=== PATIENT | female | born 1965 | race Caucasian/White ===

== ENCOUNTER 2016-08-28 14:51 | Emergency (ER) | payer MEDICAID ==
[~2016-08-28] VITALS: Ht 157.5 cm; Wt 76.4 kg
[~2016-08-28 14:51] MED LIST: NAPR-260 PO; TRAM50TA2 PO
[2016-08-28 14:53] VITALS: Ht 157.5 cm; Wt 76.4 kg
--- NOTE | 2016-08-28 17:15 | ERD ---
ER Documentation Chief Complaint Date/Time DATE: 08/28/16 TIME: 17:11 Chief Complaint RIGHT EYE REEDNESS HPI This a 51-year-old female who presents the emergency department today complaining of a red eye for the past 3 days. Patient states that she has been blowing her nose a lot recently as she has had allergies. States that she saw her eye doctor yesterday and he told her that she was fine and that she could follow-up in 2 weeks. States she is concerned because the redness has spread. Denies any trauma, loss of vision,, pain, blurred vision headache, nausea or vomiting. ROS All systems reviewed and are negative except as per history of present illness. Medications Home Meds Active Scripts Fluticasone Propionate (Flonase Allergy Relief) 9.9 Ml [place].susp, 2 SPRAY NASAL DAILY, #1 BOTTLE TO EACH NOSTRIL Prov:GUILLERMO NIETO PA-C 08/28/16 Cetirizine Hcl* (Zyrtec*) 10 Mg Capsule, 10 MG PO DAILY, #14 TAB.CHEW Prov:GUILLERMO NIETO PA-C 08/28/16 Tramadol HCl (Tramadol HCl) 50 Mg Tablet, 50 MG PO q8h, #10 TAB Prov:KERLINE VAUGHAN DO 04/02/15 Naproxen* (Naprosyn*) 500 Mg Tablet, 500 MG PO BID Y for PAIN AND/OR INFLAMMATION, #14 TAB Prov:KERLINE VAUGHAN DO 04/02/15 Allergies Allergies: Coded Allergies: No Known Allergy (Verified , 08/28/16) PMhx/Soc Medical and Surgical Hx: pt denies Medical Hx, pt denies Surgical Hx History of Surgery: No Anesthesia Reaction: No Hx Neurological Disorder: No Hx Respiratory Disorders: No Hx Cardiac Disorders: No Hx Psychiatric Problems: No Hx Miscellaneous Medical Probl: No Hx Alcohol Use: No Hx Substance Use: No Hx Tobacco Use: No Smoking Status: Never smoker Physical Exam Vitals Vital Signs Date Time Temp Pulse Resp B/P Pulse Ox O2 Delivery O2 Flow Rate FiO2 08/28/16 14:53 98.1 99 20 118/76 99 Physical Exam Const: No acute distress Head: Atraumatic Eyes: Right eye with conjunctival erythema and evidence of subconjunctival hemorrhage that does not cross into the iris. Left eye no erythema ENT: Ears TMs normal. Nose no drainage. Throat no erythema no exit Neck: Full range of motion..~ No meningismus. Resp: Clear to auscultation bilaterally Cardio: Regular rate and rhythm, no murmurs Skin: No petechiae or rashes Back: No midline or flank tenderness Psych: Normal Mood and Affect Procedures/MDM This 51-year-old female who presents the emergency department today concerned with right eye redness for the past 3 days. On physical exam patient has evidence of subconjunctival hemorrhage. Patient wears glasses and she did see her eye doctor yesterday but was told that everything was fine that she can return in 2 weeks. Patient was concerned because the redness is spreading. Redness does not cross into the colored portion of her iris and have low suspicion for, hyphema, globe rupture, conjunctivitis, acute narrow angle glaucoma, foreign body. I have explained to the patient that it is not uncommon for the redness to spread. I have explained to the patient that she may follow back up with her eye doctor on Tuesday. I did do a visual acuity on the patient Visual acuity left eye 20/20 Right eye 20/20 Bilateral 2020 Patient had mentioned that she had been blowing her nose a lot and this is likely the source of the patient's subconjunctival hemorrhage. Patient indicated she think she has allergies. I will give her prescription for Flonase and Zyrtec to treat allergic rhinitis. I will also give her information for [facility] At this time the patient is stable for discharge and outpatient management. Patient should follow up with their PCP in the next 1-2 days. They may return to the emergency department sooner for any persistent or worsening of symptoms. Patient understood and agreed with the plan. Departure Diagnosis: Primary Impression: Eye problem Condition: Fair GUILLERMO NIETO PA-C Aug 28, 2016 17:15
[2016-08-28] MEDS ORDERED: FLUT9.9S NASAL (17:35)
[2016-08-28] MEDS ORDERED: CETI10CA PO (17:35)
[2016-08-28 17:46] VITALS: BP 122/78; PULSE 72; RESP 18; TEMP 98
== END 2016-08-28 17:47 | disposition home or self-care (01) ==
LOC: FTE 14:51
DX: H57.8 Other specified disorders of eye and adnexa (principal)
CPT/HCPCS: 99283

== ENCOUNTER 2016-09-15 11:35 | Emergency (ER) | payer MEDICAID ==
[~2016-09-15] VITALS: Ht 157.5 cm; Wt 70.0 kg
[~2016-09-15 11:35] MED LIST changes: +CETI10CA PO; +FLUT9.9S NASAL
[2016-09-15 11:41] VITALS: Ht 157.5 cm; Wt 70.0 kg
[2016-09-15] MEDS ORDERED: FAMOTIDINE 20 MG TAB PO STA (12:12)
[2016-09-15] MEDS ORDERED: ONDANSETRON 4 MG INJ IV STA (12:12)
[2016-09-15] MEDS ORDERED: SOD CHLORIDE 0.9% 1,000 ML IV STA (12:12)
[2016-09-15] MEDS ORDERED: LIDOCAINE/MYLANTA 40 ML BTL PO STA (12:12)
[2016-09-15] MEDS ORDERED: morphine 2 MG INJ IV STA (12:12)
[2016-09-15] MEDS ORDERED: BELLADONNA/PHENOBARBITAL TAB PO STA (12:12)
[2016-09-15 12:32] LABS: ADD SCAN DIFF NO
[2016-09-15 12:48] LABS: BASOPHILS % 0.2 % (0.0-2.0); HEMATOCRIT 41.5 % (37.0-47.0); LYMPHOCYTES % 7.8 % (15.0-51.0); MEAN CORPUSCULAR HGB CONC 33.7 g/dl (32.0-37.0); MEAN CORPUSCULAR VOLUME 89.1 fl (82.0-101.0); MEAN PLATELET VOLUME 11.4 fl (7.4-10.4); MONOCYTE # 0.6 10^3/ul (0.3-0.9); MONOCYTES % 4.9 % (0.0-11.0); NEUTROPHILS % 86.5 % (39.0-77.0); PLATELET COUNT 211 10^3/UL (140-415); RED BLOOD COUNT 4.66 10^6/ul (4.20-5.40); RED CELL DISTRIBUTION WIDTH 14.1 % (11.5-14.5); WHITE BLOOD COUNT 12.7 10^3/ul (4.8-10.8)
[2016-09-15 12:54] LABS: ALBUMIN 4.5 g/dl (3.3-4.9); CHLORIDE 101 mmol/L (97-110)
[2016-09-15 12:55] LABS: INR 0.86; POTASSIUM 3.5 mmol/L (3.5-5.1); PROTIME 11.7 Sec (12.2-14.2); PT RATIO 0.9; SODIUM 140 mmol/L (135-144)
[2016-09-15 12:57] LABS: ANION GAP 16 (8-16); BILIRUBIN,INDIRECT 0.6 mg/dl (0-1.1); BILIRUBIN,TOTAL 0.6 mg/dl (0.2-1.3); CARBON DIOXIDE 27 mmol/L (21-31); CREATININE 0.52 mg/dl (0.44-1.00)
[2016-09-15 12:58] LABS: ALANINE AMINOTRANSFERASE 33 IU/L (13-69); ALBUMIN/GLOBULIN RATIO 1.25; ALKALINE PHOSPHATASE 86 IU/L (42-121); ASPARTATE AMINO TRANSFERASE 23 IU/L (15-46); BLOOD UREA NITROGEN 9 mg/dl (7-20); CALCIUM 9.1 mg/dl (8.4-10.2); GLUCOSE 123 mg/dl (70-220); TOTAL PROTEIN 8.1 g/dl (6.1-8.1)
--- NOTE | 2016-09-15 13:04 | RADRPT ---
PROCEDURE: US Abdomen. CLINICAL INDICATION: abdominal pain TECHNIQUE: Multiple real-time images were acquired of the patient's right upper quadrant abdomen a nd retroperitoneum utilizing a high resolution transducer. COMPARISON: None FINDINGS: The liver demonstrates normal echogenicity. The liver is normal in size and no focal solid lesions are seen. The liver measures 9.8 cm in length. The portal vein is patent with normal direction of fl ow. No intrahepatic biliary dilatation is seen. No gallstones are identified within the gallbladder. There is no pericholecystic fluid or gallbladd er wall thickening. The common bile duct measures 6.6 mm in maximal dimension. The visualized portions of the pancreas are unremarkable. The tail of the pancreas is not seen. No free fluid is identified. The right kidney is normal in size, and demonstrate normal echogenicity and cortical thickness. The right kidney measures 11.1 cm in long dimension. There is no evidence of hydronephrosis. There are no kidney stones. RPTAT: AA IMPRESSION: No evidence of gallstones. Borderline dilated CBD. .Olman Deluca MD, Date Time Electronically viewed and signed by .Olman Deluca MD, on 09/15/2016 13:04 .S/
[2016-09-15 13:10] LABS: TROPONIN-I < 0.012 ng/ml (0.00-0.12)
[2016-09-15] MEDS ORDERED: OMEP40CA6 PO (13:55)
[2016-09-15] MEDS ORDERED: FAMO40TA52 PO (13:55)
[2016-09-15] MEDS ORDERED: MAG355OR14 PO (13:55)
--- NOTE | 2016-09-15 14:47 | ERD ---
ER Documentation Chief Complaint Date/Time DATE: 09/15/16 TIME: 14:47 Chief Complaint epigastric pain rad to the thorat onset 0300 HPI 51-year-old woman complains of sharp burning epigastric discomfort radiating upward toward her throat with increased belching 1 day. She denies fevers or chills, no dysuria or anorexia, no chest pain or shortness of breath. ROS All systems reviewed and are negative except as per history of present illness. Medications Home Meds Active Scripts Omeprazole* (Omeprazole*) 40 Mg Capsule.dr, 40 MG PO DAILY, #30 CAP Prov:GISELE MIN MD 09/15/16 Famotidine* (Famotidine*) 40 Mg Tablet, 40 MG PO HS, #30 TAB Prov:GISELE MIN MD 09/15/16 Mag Hydrox/Al Hydrox/Simeth (Maalox Advanced Suspension) 355 Ml [place].susp, 2 TSP PO TID for PAIN, #24 OZ Prov:GISELE MIN MD 09/15/16 Discontinued Scripts Fluticasone Propionate (Flonase Allergy Relief) 9.9 Ml [place].susp, 2 SPRAY NASAL DAILY, #1 BOTTLE TO EACH NOSTRIL Prov:GUILLERMO NIETO PA-C 08/28/16 Cetirizine Hcl* (Zyrtec*) 10 Mg Capsule, 10 MG PO DAILY, #14 TAB.CHEW Prov:GUILLERMO NIETO PA-C 08/28/16 Tramadol HCl (Tramadol HCl) 50 Mg Tablet, 50 MG PO q8h, #10 TAB Prov:KERLINE VAUGHAN DO 04/02/15 Naproxen* (Naprosyn*) 500 Mg Tablet, 500 MG PO BID Y for PAIN AND/OR INFLAMMATION, #14 TAB Prov:KERLINE VAUGHAN DO 04/02/15 Allergies Allergies: Coded Allergies: No Known Allergy (Verified , 09/15/16) PMhx/Soc None History of Surgery: No Anesthesia Reaction: No Hx Neurological Disorder: No Hx Respiratory Disorders: No Hx Cardiac Disorders: No Hx Psychiatric Problems: No Hx Miscellaneous Medical Probl: No Hx Alcohol Use: No Hx Substance Use: No Hx Tobacco Use: No Smoking Status: Never smoker FmHx Family History: No diabetes Physical Exam Vitals Vital Signs Date Time Temp Pulse Resp B/P Pulse Ox O2 Delivery O2 Flow Rate FiO2 09/15/16 15:01 98.7 100 18 121/79 100 Room Air 09/15/16 11:41 98.1 99 18 125/82 99 Physical Exam GENERAL: Well-developed, well-nourished, well-hydrated, in no apparent distress , looks nontoxic in appearance HEENT: Moist mucous membranes, pink conjunctiva, no cervical spine tenderness or step-off deformities, no goiter, no jaundice or icterus, extraocular movements intact without pain. No submandibular induration, and no pharyngeal erythema NEURO: Alert and oriented 3, cranial nerves II through XII intact bilaterally, pupils equal round reactive to light, no focal deficits or facial asymmetry, sensation intact distally Strength 5/5 in upper and lower extremities bilaterally CARDIAC: Regular rate and rhythm, no murmurs rubs or gallops LUNGS: Clear bilaterally no wheezing crackles or stridor ABDOMEN: Soft nontender, no guarding, no rigidity, no rebound, no psoas sign no obturator sign. Normoactive bowel sounds SKIN: Warm and dry to touch, no abrasions, contusions, or hematomas, no lacerations, no ecchymosis, no target lesions, and without ulcers EXTREMITIES: No clubbing cyanosis or edema, calves are bilaterally symmetrical, no Homans sign, no popliteal cord sign. Distal pulses equal and bilateral PSYCH: Normal affect without agitation or irritability Result Diagram: 09/15/16 1210 09/15/16 1210 Results 24 hrs Laboratory Tests Test 09/15/16 12:10 White Blood Count 12.710^3/ul Red Blood Count 4.6610^6/ul Hemoglobin 14.0g/dl Hematocrit 41.5% Mean Corpuscular Volume 89.1fl Mean Corpuscular Hemoglobin 30.0pg Mean Corpuscular Hemoglobin Concent 33.7g/dl Red Cell Distribution Width 14.1% Platelet Count 70015^3/UL Mean Platelet Volume 11.4fl Neutrophils % 86.5% Lymphocytes % 7.8% Monocytes % 4.9% Eosinophils % 0.0% Basophils % 0.2% Nucleated Red Blood Cells % 0.0/100WBC Neutrophils # 11.010^3/ul Lymphocytes # 1.010^3/ul Monocytes # 0.610^3/ul Eosinophils # 0.010^3/ul Basophils # 0.010^3/ul Nucleated Red Blood Cells # 0.010^3/ul Prothrombin Time 11.7Sec Prothrombin Time Ratio 0.9 INR International Normalized Ratio 0.86 Sodium Level 140mmol/L Potassium Level 3.5mmol/L Chloride Level 101mmol/L Carbon Dioxide Level 27mmol/L Anion Gap 16 Blood Urea Nitrogen 9mg/dl Creatinine 0.52mg/dl Glucose Level 123mg/dl Calcium Level 9.1mg/dl Total Bilirubin 0.6mg/dl Direct Bilirubin 0.00mg/dl Indirect Bilirubin 0.6mg/dl Aspartate Amino Transf (AST/SGOT) 23IU/L Alanine Aminotransferase (ALT/SGPT) 33IU/L Alkaline Phosphatase 86IU/L Troponin I < 0.012ng/ml Total Protein 8.1g/dl Albumin 4.5g/dl Globulin 3.60g/dl Albumin/Globulin Ratio 1.25 Lipase 45U/L Current Medications Medications (Trade) Dose Ordered Sig/Anjum Route PRN Reason Start Time Stop Time Status Last Admin Dose Admin Sodium Chloride (NS) 1,000 ml @ 1,000 mls/hr Q1H STAT IV 09/15/16 12:12 09/15/16 13:11 DC 09/15/16 13:05 Morphine Sulfate (morphine) 2 mg ONCE STAT IV 09/15/16 12:12 09/15/16 12:14 DC 09/15/16 13:06 Ondansetron HCl (Zofran Inj) 4 mg ONCE STAT IV 09/15/16 12:12 09/15/16 12:14 DC 09/15/16 13:06 Famotidine (Pepcid) 40 mg ONCE STAT PO 09/15/16 12:12 09/15/16 12:14 DC 09/15/16 13:05 Miscellaneous Medication (Gi Cocktail (2)) 40 ml ONCE STAT PO 09/15/16 12:12 09/15/16 12:14 DC 09/15/16 13:05 Belladonna/ Phenobarbital () 2 tab ONCE STAT PO 09/15/16 12:12 09/15/16 12:14 DC 09/15/16 13:06 Procedures/MDM IV line was established patient was placed on cardiac nurse specialist rhythm strip revealed a sinus rhythm at about 80 bpm with upright P and T waves. Patient was afebrile. EKG performed, read by me: 85 bpm, normal sinus rhythm, normal axis, no acute ST segment changes, narrow QRS complex, with good R-wave progression in precordial leads. I administered 1 L normal saline intravenously, morphine 2 mg IV,, Zofran 4 mg IV, GI cocktail 50 cc per, famotidine 40 mg p.o. with good effect. Ultrasound of the upper abdomen was performed no acute cholecystitis or cholelithiasis was noted. Please refer to radiologist dictation for full report. Urinalysis was negative for infection, CBC and electrolytes are normal, liver function tests are normal. Differential diagnoses considered, included but not limited to acute coronary syndrome, pulmonary embolism, aortic dissection, abdominal aortic aneurysm, sepsis, stroke, meningitis, encephalitis, pneumonia, appendicitis, cholecystitis , bowel obstruction, pyelonephritis, nephrolithiasis, cystitis, as well as metabolic, hematologic, and electrolyte abnormalities. As well as abscess, cellulitis, fractures, and dislocations. Patient feels much better at this time, and vital signs are normal, symptoms have improved. I did give strict instructions to return to the ED if symptoms continue or worsen, patient will otherwise follow-up with primary care physician. Patient understood instructions and agreed to plan. Departure Diagnosis: Primary Impression: Gastritis Gastritis type: unspecified gastritis Chronicity: acute Gastritis bleeding : without bleeding Qualified Code: K29.00 - Acute gastritis without hemorrhage, unspecified gastritis type Condition: Good Patient Instructions: Abdominal Pain, Unknown Cause, (Female), Gastritis Vs. Ulcer GISELE MIN MD September 15, 2016 14:47
[2016-09-15 15:01] VITALS: BP 121/79; PULSE 100; RESP 18; TEMP 98.7
== END 2016-09-15 15:02 | disposition home or self-care (01) ==
LOC: E/R 11:35
DX: K29.00 Acute gastritis without bleeding (principal)
CPT/HCPCS: 36415; 76705; 80053; 83690; 84484; 85025; 85610; 93005; 96374; 96375; J2270; J2405; J7030; Z7502; Z7610